=== PATIENT | female | born 1950 | race Caucasian/White ===

== ENCOUNTER → 2017-02-08 | Outpatient (CLI) | payer MEDICARE ==
--- NOTE | 2017-02-11 10:01 | MM ---
Reason for exam: screening (asymptomatic). Last mammogram was performed 2 years and 9 months ago. History: Patient is postmenopausal. Physical Findings: A clinical breast exam by your physician is recommended on an annual basis and results should be correlated with mammographic findings. MG 3D Screening Mammo W/Cad Bilateral CC and MLO view(s) were taken. Prior study comparison: April 30, 2014, left breast MG work up mamm w CAD LT. April 21, 2014, bilateral MG screening mammo w CAD. There are scattered fibroglandular densities. No significant changes when compared with prior studies. ASSESSMENT: Benign, BI-RAD 2 RECOMMENDATION: Routine screening mammogram of both breasts in 1 year.
== END | disposition home or self-care (01) ==
LOC: RADMAMWWP 08:02
PROVIDERS: ATTEND Internal Medicine
DX: Z12.31 Encounter for screening mammogram for malignant neoplasm of breast (principal)
CPT/HCPCS: 77063; G0202

== ENCOUNTER → 2018-02-10 | Outpatient (CLI) | payer MEDICARE ==
--- NOTE | 2018-02-11 06:48 | BD ---
EXAMINATION TYPE: Axial Bone Density DATE OF EXAM: 02/10/2018 COMPARISON: NONE CLINICAL HISTORY: screening Height: 5'4 Weight: 163 FRAX RISK QUESTIONS: History of Fracture in Adulthood: y Secondary Osteoporosis: RISK FACTORS HISTORY OF: History of Wrist Fracture: [place] When: 8 years ago Surgery to Wrist (right/left): [place] When: 8 years ago Postmenopausal woman: y MEDICATIONS: Additional Medications: cholesterol, blood pressure Additional History: EXAM MEASUREMENTS: Bone mineral densitometry was performed using the [employer] System. Bone mineral density as measured about the Lumbar spine is: ----- L1-L4(G/cm2): 0.772 T Score Values are as follows: ----- L2: -4.0 ----- L3: -2.9 ----- L4: -3.9 ----- L1-L4: -3.4 Bone mineral density about the R hip (g/cm2): 0.653 Bone mineral density about the L hip (g/cm2): 0.668 T Score values are as follows: -----R Neck: -2.8 -----L Neck: -2.7 -----R Total: -2.5 -----L Total: -1.9 IMPRESSION: Osteoporosis (T Score less than -2.5). There is increased fracture risk and therapy is usually indicated based on age. Re-Screen 1-2 years. NOTE: T-SCORE=SD OF THE YOUNG ADULT MEAN.
--- NOTE | 2018-02-11 10:17 | MM ---
Reason for exam: screening (asymptomatic). Last mammogram was performed 1 year ago. History: Patient is postmenopausal. Physical Findings: A clinical breast exam by your physician is recommended on an annual basis and results should be correlated with mammographic findings. MG 3D Screening Mammo W/Cad Bilateral CC and MLO view(s) were taken. Prior study comparison: February 08, 2017, bilateral MG 3d screening mammo w/cad. April 30, 2014, left breast MG work up mamm w CAD LT. The breast tissue is heterogeneously dense. This may lower the sensitivity of mammography. Benign calcifications bilaterally. There is chronic nodularity in the left breast. No significant changes when compared with prior studies. ASSESSMENT: Benign, BI-RAD 2 RECOMMENDATION: Routine screening mammogram of both breasts in 1 year.
== END ==
LOC: RADMAMWWP 11:41
PROVIDERS: ATTEND Internal Medicine
DX: Z12.31 Encounter for screening mammogram for malignant neoplasm of breast (principal); M81.0 Age-related osteoporosis without current pathological fracture
CPT/HCPCS: 77063; 77067; 77080

== ENCOUNTER → 2018-02-24 | Outpatient (CLI) | payer MEDICARE ==
--- NOTE | 2018-02-24 09:42 | US ---
EXAMINATION TYPE: US venous doppler duplex LE RT DATE OF EXAM: 02/24/2018 9:11 AM COMPARISON: NONE CLINICAL HISTORY: M79.604 Pain right lower extremity. Pt states redness and rain lower medial right l eg x 1 week SIDE PERFORMED: Right TECHNIQUE: The lower extremity deep venous system is examined utilizing real time linear array sonog liza with graded compression, doppler sonography and color-flow sonography. VESSELS IMAGED: External Iliac Vein (EIV) Common Femoral Vein Deep Femoral Vein Greater Saphenous Vein * Femoral Vein Popliteal Vein Small Saphenous Vein * Proximal Calf Veins (* superficial vessels) Right Leg: Negative for DVT, probable thrombophlebitis right lower medial leg where pt is having red ness and pain Results called to Dr. Cheema at time of exam IMPRESSION: Negative for DVT, probable thrombophlebitis right lower medial leg where pt is having re dness and pain
== END | disposition home or self-care (01) ==
LOC: RADUSWWP 08:50
PROVIDERS: ATTEND Internal Medicine
DX: M79.604 Pain in right leg (principal)

== ENCOUNTER 2021-06-27 07:11 | Day surgery (SDC) | payer MEDICARE ==
[2021-06-23 15:21] VITALS: BMI 25.0
[~2021-06-27 07:11] MED LIST: ALPRAZolam 0.25 MG TAB PO PRN; ALPRAZolam 0.5 MG TAB PO PRN; ASPIRIN 325 MG TAB PO STA; NITROGLYCERIN SL TABS 0.4 MG TAB SUBLINGUAL PRN; SODIUM CHLORIDE 0.9% 1,000 ML in EMPTY BAG 1 BAG IV SCH
[2021-06-27 07:52] VITALS: TEMP 98.3
[2021-06-27 08:09] LABS: African American GFR (CKD) >90 (>60 ml/min/1.73 sqM); Anion Gap 7 mmol/L; Blood Urea Nitrogen 13 mg/dL (7-17); Calcium 9.4 mg/dL (8.4-10.2); Carbon Dioxide 25 mmol/L (22-30); Chloride 106 mmol/L (98-107); Glucose 111 mg/dL (74-99); Non-African American GFR(CKD) 78 (>60 ml/min/1.73 sqM); Sodium 138 mmol/L (137-145)
[2021-06-27 08:11] LABS: Basophils % (A) 1 %; Eosinophils # (A) 0.2 k/uL (0-0.7); Eosinophils % (A) 3 %; HCT 44.8 % (34.0-46.0); HGB 14.8 gm/dL (11.4-16.0); Lymphocytes # (A) 1.8 k/uL (1.0-4.8); Lymphocytes % (A) 30 %; MCH 30.5 pg (25.0-35.0); MCV 92.6 fL (80.0-100.0); Mean Platelet Volume 8.6; Monocytes # (A) 0.4 k/uL (0-1.0); Monocytes % (A) 6 %; Neutrophils # (A) 3.6 k/uL (1.3-7.7); Neutrophils % (A) 59 %; Platelet Count 250 k/uL (150-450); RBC 4.84 m/uL (3.80-5.40); RDW 12.8 % (11.5-15.5); WBC 6.2 k/uL (3.8-10.6)
[2021-06-27 08:19] LABS: Potassium 4.2 mmol/L (3.5-5.1)
[2021-06-27] MEDS ORDERED: LIDOCAINE 1% INJ 10MG/ML (20 ML MDV) ONE (08:38)
[2021-06-27] MEDS ORDERED: VERAPAMIL 2.5 MG/ML 2 ML AMP ONE (08:38)
[2021-06-27] MEDS ORDERED: fentaNYL (PF) 50 MCG/ML 2 ML AMP ONE (09:07)
[2021-06-27] MEDS ORDERED: HEPARIN SODIUM 1,000 UN/ML (10ML VL) ONE (09:07)
[2021-06-27] MEDS ORDERED: fentaNYL (PF) 50 MCG/ML 2 ML AMP IV ONE (09:10)
[2021-06-27] MEDS ORDERED: LIDOCAINE 1% INJ 10MG/ML (20 ML MDV) SQ ONE (09:12)
[2021-06-27] MEDS ORDERED: VERAPAMIL SYRINGE (5 MG/10 ML) INTRAARTER ONE (09:13)
[2021-06-27] MEDS ORDERED: MIDAZOLAM 2 MG/2 ML VIAL IV ONE (09:17)
[2021-06-27] MEDS ORDERED: HEPARIN SODIUM 1,000 UN/ML (10ML VL) IV ONE (09:19)
[2021-06-27] MEDS ORDERED: IOPAMIDOL-370 125ML BTL INJ ONE (09:21)
[2021-06-27] MEDS ORDERED: RX INFO: IV CONTRAST WAS GIVEN 1 EACH MISC MISCELLANE PRN (09:31)
--- NOTE | 2021-06-27 09:38 | P.CARDCATH ---
Date of Procedure: 06/27/21 Description of Procedure: Cardiac Catheterization: The patient is a 70-year-old female with known history of hypertension, hyperlipidemia and a prior history of CAD status post stenting of the LAD in 2008 recently underwent an MPI that showed a partially reversible anterolateral wall defect. Recommendations were made regarding cardiac catheterization, the risks and the complications were discussed with the patient who is in full understanding and agreement. 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 Using Xylocaine Anesthesia and Seldinger technique, a 6-[place] sheath was introduced in the right radial artery . Subsequently, selective coronary angiography performed using a 5-[place] 3.5 bend Roxana catheter. Multiple views of the coronary artery including hemiaxial vie ws were obtained. The right Roxana catheter was used to cross the aortic valve and LVDP was calculated. Following that, catheter and sheath were removed. Hemostasis was obtained with deployment of TR band . There was no immediate complication. Patient was returned to room in stable condition. Of note, the patient received a total of 3500 units of intravenous heparin as well as intra- arterial verapamil. There was no immediate complications. Findings: Left main: This is a large size vessel, bifurcating LAD and left circumflex, left main has no evidence of high-grade stenosis LAD: This is a large size vessel, reaching to the apex, gives rise to 2 diagonal branch. The stented segment in the proximal LAD has 20-30% in-stent restenosis. The first diagonal branch is jailed branch that has 70-80% stenosis at the ostium. It is small in caliber. Left circumflex: This is a nondominant large size vessel, giving rise to 2 obtuse marginal branch, the proximal left circumflex has mild plaque of 10% RCA: This is the dominant vessel, bifurcating into PDA and PLV, the RCA has mild plaque of 10% in the midsegment with no high-grade stenosis. [Left] Ventriculogram: Was not performed Hemodynamics: There was no gradient across the aortic valve, LVEDP 18-22 mm of mercury. Conclusion: 1. Patent stent in the LAD 2. Mild triple-vessel disease 3. Significant disease in the first small diagonal branch that is jailed branch 4. Right dominance Recommendations: In view of her anatomy I will continue medical therapy, it is possible that her stress test represent the diagonal branch territory. The findings as well as the recommendations were discussed with the patient and her family. Duration of sedation is 13 minutes.
[2021-06-27] MEDS ORDERED: SODIUM CHLORIDE 0.9% 1,000 ML IV SCH (09:45)
[2021-06-27 15:53] VITALS: PULSE 52
[2021-06-27 15:54] VITALS: BP 144/65; RESP 16
[2021-06-28] MEDS ORDERED: lisinopriL 10 MG TAB PO SCH (09:00)
[2021-06-28] MEDS ORDERED: ASPIRIN 81 MG PO SCH (09:00)
[2021-06-28] MEDS ORDERED: MULTIVITAMINS, THERA 1 EACH TAB PO SCH (09:00)
[2021-06-28] MEDS ORDERED: ATORVASTATIN 10 MG TAB PO SCH (09:00)
== END 2021-06-27 13:30 | disposition home or self-care (01) ==
LOC: CATHCVL 07:11
PROVIDERS: ATTEND Internal Medicine Interventional Cardiology
DX: R94.39 Abnormal result of other cardiovascular function study (principal); I25.10 Atherosclerotic heart disease of native coronary artery without angina pectoris; I10 Essential (primary) hypertension; E78.00 Pure hypercholesterolemia, unspecified; E78.2 Mixed hyperlipidemia; Z20.822 Contact with and (suspected) exposure to COVID-19; Z95.5 Presence of coronary angioplasty implant and graft; Z82.49 Family history of ischemic heart disease and other diseases of the circulatory system; Z79.82 Long term (current) use of aspirin; Z79.83 Long term (current) use of bisphosphonates; Z79.899 Other long term (current) drug therapy
CPT/HCPCS: 93458; 80048; 85025; 87635; C1894; C1769; J2250; J2001; J3010; J1644; Q9967

== ENCOUNTER 2021-07-01 10:23 | Emergency (ER) | payer MEDICARE ==
[2021-07-01 10:28] VITALS: TEMP 97.2
--- NOTE | 2021-07-01 11:01 | ED ---
Extremity Problem HPI - General Chief complaint: Extremity Problem,Nontraumatic Stated complaint: Heart Cath post issues Rt wrist Time Seen by Provider: 07/01/21 10:49 Source: patient, RN notes reviewed Mode of arrival: ambulatory Limitations: no limitations - History of Present Illness Initial comments: This is a pleasant 70-year-old female presents to emergency department complaining of bruising and swelling to the volar aspect of her right forearm. Patient states she had a cardiac catheter with access through the radial artery on Saturday. 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 Said she had quite a bit of swelling after work yesterday. Patient really denies any pain. She denies any distal paresthesias. No proximal pain. No redness. No drainage. No functional impairment. No shortness breath or chest pain. MD Complaint: extremity swelling - Related Data Home Medications Medication Instructions Recorded Confirmed Aspirin [Adult Low Dose Aspirin EC] 162 mg PO DAILY 06/23/21 07/01/21 Cholecalciferol [Vitamin D3 (25 50 mcg PO DAILY 06/23/21 07/01/21 Mcg = 1000 Iu)] Enalapril [Vasotec] 5 mg PO DAILY 06/23/21 07/01/21 Multivitamins, Thera [Multivitamin 1 tab PO DAILY 06/23/21 07/01/21 (formulary)] Alendronate Sodium [Fosamax] 70 mg PO JENKINS 07/01/21 07/01/21 Atorvastatin Calcium [Lipitor] 40 mg PO DAILY 07/01/21 07/01/21 Allergies Allergy/AdvReac Type Severity Reaction Status Date / Time No Known Allergies Allergy Verified 07/01/21 11:51 Review of Systems ROS Statement: Those systems with pertinent positive or pertinent negative responses have been documented in the HPI. ROS Other: All systems not noted in ROS Statement are negative. Past Medical History Past Medical History: Coronary Artery Disease (CAD), GERD/Reflux, Hyperlipidemia, Hypertension, Myocardial Infarction ([place]) Additional Past Medical History / Comment(s): Swelling in legs, wears compression stockings, varicose veins. Last Myocardial Infarction Date:: 08/12/2008 History of Any Multi-Drug Resistant Organisms: None Reported Past Surgical History: Heart Catheterization, Heart Catheterization With Stent Additional Past Surgical History / Comment(s): Heart Catheterization X2, 1 stent. Varicose veins removed from right leg. Right wrist surgery. Left arm and right ankle surgery, both with screws placed. Past Anesthesia/Blood Transfusion Reactions: Postoperative Nausea & Vomiting (PONV) Date of Last Stent Placement:: 08/12/2008 Past Psychological History: No Psychological Hx Reported Smoking Status: Never smoker Past Alcohol Use History: Occasional Past Drug Use History: None Reported - Past Family History Mother Family Medical History: No Reported History General Exam - General Exam Comments Initial Comments: Healthy-appearing 70-year-old in no distress. Limitations: no limitations General appearance: alert, in no apparent distress Head exam: Present: atraumatic, normocephalic, normal inspection Eye exam: Present: normal appearance, PERRL, EOMI. Absent: scleral icterus, conjunctival injection, periorbital swelling ENT exam: Present: normal exam, mucous membranes moist Neck exam: Present: normal inspection. Absent: tenderness, meningismus, lymphadenopathy Respiratory exam: Present: normal lung sounds bilaterally. Absent: respiratory distress, wheezes, rales, rhonchi, stridor Cardiovascular Exam: Present: regular rate, normal rhythm, normal heart sounds, other (Radial pulse 2+ out of 4. Capillary refill less than 2 seconds.). Absent: systolic murmur, diastolic murmur, rubs, gallop, clicks GI/Abdominal exam: Present: soft, normal bowel sounds. Absent: distended, tenderness, guarding, rebound, rigid Extremities exam: Present: full ROM (Full range of motion, full strength in all functional planes with regards to phalanges, hand, wrist, forearm, and elbow.), normal capillary refill, other (Bruising noted to the volar aspect of the right forearm with minimal edema extending to the proximal aspect of the forearm. Does not go to the elbow. No evidence of infectious process. No erythema. No axillary adenopathy.). Absent: tenderness, pedal edema, joint swelling, calf tenderness Back exam: Present: normal inspection Neurological exam: Present: alert, oriented X3, CN II-XII intact Psychiatric exam: Present: normal affect, normal mood Skin exam: Present: warm, dry, intact, normal color. Absent: rash Course Vital Signs 07/01/21 07/01/21 10:25 11:32 Temperature 97.2 F L Pulse Rate 56 L 47 L Respiratory 18 14 Rate Blood Pressure 149/61 145/65 O2 Sat by Pulse 98 96 Oximetry Medical Decision Making - Medical Decision Making Patient appears to have postprocedural bruising with edema. No evidence of infectious process. Venous Doppler ordered. Radial pulses 2+ out of 4. Note that this patient left without her discharge instructions or the results of her Doppler study. No evidence of pseudoaneurysm. With this is relatively low risk. I did call and leave a message on the patient's answering machine. Patient was told to return to the ER if anything worsened by the RN before she left. She did not give me a chance to speak to her. Unsure whether the patient was upset or not. However per the RN the patient was just tired of waiting. - Radiology Data Radiology results: report reviewed, image reviewed Disposition Clinical Impression: Contusion of right forearm, initial encounter Narrative: Hematoma Disposition: HOME SELF-CARE Condition: Good Instructions (If sedation given, give patient instructions): Hematoma (ED) Additional Instructions: Follow-up with your regular physician as directed. Return to the ER immediately if any symptoms worsen, new symptoms arise, or any other problems develop. Is patient prescribed a controlled substance at d/c from ED?: No Referrals: Doug Eduardo MD [Primary Care Provider] - 1-2 days Rica Arceo MD [STAFF PHYSICIAN] - 1-2 days Time of Disposition: 13:36
[2021-07-01 11:36] VITALS: BP 145/65; PULSE 47; RESP 14
--- NOTE | 2021-07-01 11:41 | US ---
EXAMINATION TYPE: US upper ext pseudo RT DATE OF EXAM: 07/01/2021 COMPARISON: NONE CLINICAL HISTORY: Right arm swelling. Bruising at right wrist, site of recent radial approach cathete rization. Scanning was preformed directly over bruising on right wrist. The Radial artery is patent. There is n o fluid collection or psuedo noted. IMPRESSION: Limited scan right upper extremity. No evident pseudoaneurysm at the level of the radial artery
== END 2021-07-01 13:45 | disposition home or self-care (01) ==
LOC: EC 10:23
DX: S50.11XA Contusion of right forearm, initial encounter (principal); I10 Essential (primary) hypertension; I25.2 Old myocardial infarction; I25.10 Atherosclerotic heart disease of native coronary artery without angina pectoris; E78.5 Hyperlipidemia, unspecified; K21.9 Gastro-esophageal reflux disease without esophagitis; Z79.82 Long term (current) use of aspirin; Z79.899 Other long term (current) drug therapy; X58.XXXA Exposure to other specified factors, initial encounter
CPT/HCPCS: 99283

== ENCOUNTER → 2023-11-27 | Outpatient (CLI) | payer MEDICARE | END | disposition home or self-care (01) | LOC: LABWHC1 09:20 | PROVIDERS: ATTEND Internal Medicine Interventional Cardiology | DX: R00.1 Bradycardia, unspecified (principal) | CPT/HCPCS: 36415; 84443 ==